=== PATIENT | male | born 1990 | race Caucasian/White ===

== ENCOUNTER 2020-08-02 17:44 | Emergency (ER) | payer BC, OTHER ==
--- NOTE | 2020-08-02 19:28 | ED ---
General Adult HPI - General Chief complaint: Eye Problems Stated complaint: Right vision issues Time Seen by Provider: 08/02/20 18:59 Source: patient Mode of arrival: ambulatory Limitations: no limitations - History of Present Illness Initial comments: 30-year-old male presents to emergency department this evening for evaluation of right eye vision changes. States he woke up from a nap at noon with loss of vision in the upper half of the visual field and blurriness in the lower half. States the vision loss resolved within an hour and the blurriness nearly resolved by 5:00pm. Does have a h/o migraine headaches with aura that occur rarely (approximately once a year), but states this vision loss is not accompanied by headache. Denies injury or trauma to the head, face, or eye. After researching his symptoms on the Internet, he does express concern about a possible stroke, despite not experiencing any ongoing focal neurological deficits. Patient denies any recent rash, fever, chills, cough, shortness of breath, chest pain, abdominal pain, nausea, vomiting, diarrhea, constipation, back pain, numbness, tingling, dizziness, weakness, hematuria, dysuria, urinary urgency, urinary frequency, or any other complaints. - Related Data Home Medications Medication Instructions Recorded Confirmed Cholecalciferol [Vitamin D3 (25 1,000 unit PO DAILY 08/02/20 08/02/20 Mcg = 1000 Iu)] Dextroamphetamine/Amphetamine 30 mg PO BID 08/02/20 08/02/20 [Adderall] Allergies Allergy/AdvReac Type Severity Reaction Status Date / Time Sulfa (Sulfonamide Allergy Unknown Verified 08/02/20 20:07 Antibiotics) Childhood Review of Systems ROS Statement: Those systems with pertinent positive or pertinent negative responses have been documented in the HPI. ROS Other: All systems not noted in ROS Statement are negative. Past Medical History Additional Past Medical History / Comment(s): migraines History of Any Multi-Drug Resistant Organisms: None Reported Past Surgical History: Ear Surgery Past Psychological History: ADD/ADHD Smoking Status: Current every day smoker Past Alcohol Use History: None Reported Past Drug Use History: Marijuana General Exam Limitations: no limitations (Well-developed, well-nourished male in no acute distress. Initial temperature 98.2, pulse 101, respirations 20, blood pressure 159/112, pulse ox 98% on room air.) General appearance: alert, in no apparent distress Eye exam: Present: normal appearance, PERRL, EOMI. Absent: scleral icterus, conjunctival injection, periorbital swelling Pupils: Present: normal accommodation Expanded Visual acuity (R) = 20/: 15 Visual acuity (L) = 20/: 15 With correction: No Respiratory exam: Present: normal lung sounds bilaterally. Absent: respiratory distress, wheezes, rales, rhonchi, stridor Cardiovascular Exam: Present: regular rate, normal rhythm, normal heart sounds. Absent: systolic murmur, diastolic murmur, rubs, gallop, clicks GI/Abdominal exam: Present: soft, normal bowel sounds. Absent: distended, tenderness, guarding, rebound, rigid Neurological exam: Present: alert, oriented X3, CN II-XII intact Psychiatric exam: Present: normal affect, normal mood Course Vital Signs 08/02/20 08/02/20 18:04 21:07 Temperature 98.2 F 98.9 F Pulse Rate 101 H 89 Respiratory 20 16 Rate Blood Pressure 159/112 138/98 O2 Sat by Pulse 98 98 Oximetry Medical Decision Making - Medical Decision Making 30-year-old male presents to the emergency department this evening with complaints of vision changes in his right eye. States he woke up from a nap at noon today with a complete loss of vision in the upper visual field of the right eye and blurriness in the lower half of the same eye. States vision loss resolved within an hour and blurriness resolved nearly completely within the next four hours. States he has some minor alteration in the peripheral vision of the right eye he can best describe as blurriness. Denies eye pain, head trauma, or headache. Physical exam reveals no abnormal findings. Visual acuity is 20/15 OD, OS, and OU. Brain CT is negative. Results discussed with patient. He is agreeable to discharge home and verbalizes understanding when instructed to follow up with ophthalmology first thing tomorrow morning. - Radiology Data Radiology results: report reviewed CT brain without contrast was obtained. There is no evidence of cerebral edema or intracranial hemorrhage. Impression per Dr. Esteban is negative unenhanced head CT Disposition Clinical Impression: Blurry vision, right eye, Transient vision disturbance of right eye Disposition: HOME SELF-CARE Condition: Good Instructions (If sedation given, give patient instructions): Blurred Vision (ED) Additional Instructions: Call forging press setter up first thing tomorrow morning for an appointment as soon as possible. Explain the loss of vision and blurry vision. Return to the emergency department with any new, worsening, or concerning symptoms. Is patient prescribed a controlled substance at d/c from ED?: No Referrals: Lei French MD [Primary Care Provider] - 1-2 days Alan Boyd MD [STAFF PHYSICIAN] - 1-2 days Time of Disposition: 20:26
--- NOTE | 2020-08-02 20:19 | CT ---
EXAMINATION TYPE: CT brain wo con DATE OF EXAM: 08/02/2020 COMPARISON: HISTORY: Pt states he lost vision in RT eye for a period of time today. CT DLP: 1173.4 mGycm Automated exposure control for dose reduction was used. Ventricles have normal size. There is no mass effect nor midline shift. There is no sign of intracran ial hemorrhage. The calvarium is intact. There is no evidence of cerebral edema. IMPRESSION: Negative unenhanced head CT scan.
[2020-08-02 21:10] VITALS: BP 138/98; PULSE 89; RESP 16; TEMP 98.9
== END 2020-08-02 21:05 | disposition home or self-care (01) ==
LOC: EC 17:44
DX: H53.8 Other visual disturbances (principal); F90.9 Attention-deficit hyperactivity disorder, unspecified type; F17.200 Nicotine dependence, unspecified, uncomplicated; Z79.899 Other long term (current) drug therapy; Z88.2 Allergy status to sulfonamides; Z86.69 Personal history of other diseases of the nervous system and sense organs
CPT/HCPCS: 70450; 99283

== ENCOUNTER 2021-07-25 09:14 | Emergency (ER) | payer OTHER ==
[2021-07-25 09:28] VITALS: RESP 18
[2021-07-25] MEDS ORDERED: KETOROLAC 15 MG/ML 1 ML VIAL IVP STA (10:13)
[2021-07-25] MEDS ORDERED: ONDANSETRON 4 MG/2 ML VIAL IVP STA (10:14)
[2021-07-25] MEDS ORDERED: HYDROmorphone 1 MG/ML 1 ML SYRINGE IVP STA ×2 (10:14→12:27)
[2021-07-25] MEDS ORDERED: ORPHENADRINE 30 MG/ML 2 ML VIAL IVP STA (10:15)
--- NOTE | 2021-07-25 10:19 | ED ---
General Adult HPI - General Chief complaint: Back Pain/Injury Stated complaint: Back pain Time Seen by Provider: 07/25/21 09:53 Source: patient, EMS, RN notes reviewed Mode of arrival: ambulatory - History of Present Illness Initial comments: -year-old male presents to the emergency department via EMS for evaluation of low back pain that radiates down the right leg, onset 3 weeks ago. Patient states initial injury occurred when he was lifting a laundry basket from the floor. States he had been taking Motrin and resting to treat the discomfort. Reports 3 days ago the pain became more severe and he was seen by his primary care provider who prescribed him oral steroids and a muscle relaxer which she has been taking. States he then went to see a chiropractor for an adjustment, but experienced increased discomfort afterward and reports decreased mobility. Patient states he was unable to get to a standing position from out of bed this morning and therefore EMS was called to transport him to the hospital. Patient denies numbness or tingling in the lower extremities, saddle anesthesia, loss of bowel or bladder control. If he has not achieved any relief of symptoms with medications that he is been taking at home. Denies fever, chills, headache, dizziness, chest pain, shortness of breath, abdominal pain, dysuria, or hematuria. - Related Data Home Medications Medication Instructions Recorded Confirmed Dextroamphetamine/Amphetamine 30 mg PO BID 08/02/20 07/25/21 [Adderall] methocarbamoL [Robaxin] 500 mg PO HS 07/25/21 07/25/21 predniSONE See Taper PO DIRECTED 07/25/21 07/25/21 Previous Rx's Medication Instructions Recorded Ketorolac [Toradol] 10 mg PO Q8HR #15 tab 07/25/21 Allergies Allergy/AdvReac Type Severity Reaction Status Date / Time Sulfa (Sulfonamide Allergy Unknown Verified 07/25/21 12:32 Antibiotics) Childhood Review of Systems ROS Statement: Those systems with pertinent positive or pertinent negative responses have been documented in the HPI. ROS Other: All systems not noted in ROS Statement are negative. Past Medical History Additional Past Medical History / Comment(s): migraines History of Any Multi-Drug Resistant Organisms: None Reported Past Surgical History: Ear Surgery Past Psychological History: ADD/ADHD Smoking Status: Current every day smoker Past Alcohol Use History: None Reported Past Drug Use History: Marijuana General Exam Limitations: no limitations (Well-developed, well-nourished male in no acute distress. Initial pulse 86, respirations 18, blood pressure 139/93, pulse ox 99% on room air.) General appearance: alert, in no apparent distress, other Head exam: Present: atraumatic, normocephalic, normal inspection Neck exam: Present: normal inspection, full ROM. Absent: tenderness, meningismus, lymphadenopathy Respiratory exam: Present: normal lung sounds bilaterally. Absent: respiratory distress, wheezes, rales, rhonchi, stridor Cardiovascular Exam: Present: regular rate, normal rhythm, normal heart sounds. Absent: systolic murmur, diastolic murmur, rubs, gallop, clicks GI/Abdominal exam: Present: soft, normal bowel sounds. Absent: distended, tenderness, guarding, rebound, rigid Left Neurovascular tendon exam: Present: no vascular compromise (+2 pedal and posttibial pulses). Absent: pulse deficit, abnormal cap refill, motor deficit, sensory deficit, foot drop Right Neurovascular tendon exam: Present: no vascular compromise (+2 pedal and posttibial pulses). Absent: pulse deficit, abnormal cap refill, motor deficit, sensory deficit, foot drop Expanded Back exam: Absent: saddle anesthesia Back exam: Positive Straight Leg Raise: Right (Straight leg test positive on the right reproducing radiating pain down the leg), Negative Straight Leg Raising: Left (Straight leg test negative on the left as it only causes low back discomfort) Neurological exam: Present: alert, oriented X3, CN II-XII intact Skin exam: Present: warm, dry, intact, normal color. Absent: rash Course Vital Signs 07/25/21 07/25/21 09:24 13:31 Temperature 97.6 F Pulse Rate 86 78 Respiratory 18 18 Rate Blood Pressure 139/93 128/80 O2 Sat by Pulse 99 99 Oximetry - Reevaluation(s) Reevaluation #1: 07/25/21 11:10 Patient requesting to have an MRI done. I explained that this is not an option in the emergency department. Explained that no imaging is typically needed for back pain in young people. Patient then asked about the option of CT and states he had an x-ray done yesterday prior to his adjustment. Patient would like to have CT as he is concerned that there was further damage done from having the chiropractic adjustment. 07/25/21 11:27 Patient able to sit up with assistance and expresses some relief after medications. Snacking and tolerating oral intake. Medical Decision Making - Medical Decision Making 31-year-old male is evaluated for complaints of low back pain 3 weeks, but was worsened yesterday after chiropractic adjustment. Upon physical exam, patient appears markedly uncomfortable with any movement. Reports low back pain and radiation of pain down the right leg with straight leg raise test. No loss of bowel or bladder control, saddle anesthesia, fever, or foot drop noted. Patient was given IV pain medication, anti-inflammatory, and muscle relaxer with improvement. CT of the lumbar spine was obtained at insistence of patient; findings include mild disc bulging at L4-5. Results were reviewed with patient. Plan of care was discussed including continuing home medication regimen as prescribed by his primary care provider which includes oral steroid and muscle relaxer. Patient was also prescribed oral Toradol and instruct did to avoid Motrin while taking this medication. Follow-up information for orthopedics with the local back specialist provided. This patient's care was discussed with my attending Dr. Sage. - Radiology Data Radiology results: report reviewed, image reviewed CT of the lumbar spine without contrast was obtained. Report was reviewed in its entirety. Impression per Dr. Benitez is mild disc bulging L4-5 with mild anterior thecal sac compression. Endplates spurring L4-5 and L5-S1. Disposition Clinical Impression: Lumbar back pain Disposition: HOME SELF-CARE Condition: Stable Instructions (If sedation given, give patient instructions): Acute Low Back Pain (ED), Lower Back Exercises (ED) Additional Instructions: Rest. Move 10 minutes of every hour while you're awake. Continue home medications as previously prescribed. If you take Toradol, do not take Motrin in addition. Follow-up as discussed. Return to the emergency department with any new, worsening, or concerning symptoms. Prescriptions: Ketorolac [Toradol] 10 mg PO Q8HR #15 tab Is patient prescribed a controlled substance at d/c from ED?: No Referrals: Lei French MD [Primary Care Provider] - 1-2 days Anam López DO [Doctor of Osteopathic Medicine] - 1-2 days Time of Disposition: 13:09
--- NOTE | 2021-07-25 12:31 | CT ---
EXAMINATION TYPE: CT lumbar spine wo con DATE OF EXAM: 07/25/2021 COMPARISON: None HISTORY: Low back pain x [address] DLP: 1189.4 mGycm CONTRAST: None TECHNIQUE: CT of the lumbar spine is performed on a spiral scan at 3 mm thick sections. Reconstructed images are performed in the coronal and sagittal planes. FINDINGS: T12-L1: No focal disc herniation or significant disc bulge is evident. No spinal canal stenosis or neural foraminal stenosis is present. L1-L2: No focal disc herniation or significant disc bulge is evident. No spinal canal stenosis or n eural foraminal stenosis is present L2-L3: No focal disc herniation or significant disc bulge is evident. No spinal canal stenosis or n eural foraminal stenosis is present L3-L4: No focal disc herniation or significant disc bulge is evident. No spinal canal stenosis or n eural foraminal stenosis is present L4-L5: Broad-based disc bulge is present with mild anterior thecal sac compression. No spinal canal s tenosis is present. Neural foramen are patent. Endplate spurring is present without stenosis. L5-S1: No focal disc herniation or significant disc bulge is evident. No spinal canal stenosis or n eural foraminal stenosis is present. Endplate spurring without spinal canal stenosis is present. Vertebral alignment appears normal. IMPRESSION: 1. Mild disc bulging L4-5 with mild anterior thecal sac compression. 2. Endplate spurring L4-5 and L5-S1
[2021-07-25] MEDS ORDERED: ACET/COD 300 MG/30 MG STARTER PACK 6 TAB BTL PO STA (13:09)
[2021-07-25 13:34] VITALS: BP 128/80; PULSE 78; TEMP 97.6
== END 2021-07-25 13:31 | disposition home or self-care (01) ==
LOC: EC 09:14
DX: M54.5 Low back pain (principal); F17.200 Nicotine dependence, unspecified, uncomplicated; Z88.2 Allergy status to sulfonamides; X50.0XXA Overexertion from strenuous movement or load, initial encounter; Y93.89 Activity, other specified; Y92.89 Other specified places as the place of occurrence of the external cause
CPT/HCPCS: 72131; 99283; 96374; 96375; 96376; J2360; J2405; J1170; J1885

== ENCOUNTER 2021-08-04 08:12 | Emergency (ER) | payer OTHER ==
[2021-08-04] MEDS ORDERED: DEXAMETHASONE SOD PHOSPHATE 10 MG/ML 1 ML VIAL IM STA (08:25)
[2021-08-04 08:27] VITALS: BP 140/81; PULSE 106; TEMP 97.5
--- NOTE | 2021-08-04 08:32 | ED ---
General Adult HPI - General Stated complaint: Swollen Uvula Time Seen by Provider: 08/04/21 08:12 Source: patient, RN notes reviewed, old records reviewed Mode of arrival: EMS - History of Present Illness Initial comments: 31-year-old male with foreign body sensation in his throat. Patient states it woke her evening and had eaten some crackers. He was doing fine at this time. He woke this morning and had the sensation of foreign body in his throat. Noted that his uvula was swollen. He called paramedics and was transported to the emergency department. He denies any fever. Denies preceding sore throat. Denies nasal congestion. He states he has some chronic pain issues but is otherwise healthy. No antihypertensive medication. - Related Data Home Medications Medication Instructions Recorded Confirmed Dextroamphetamine/Amphetamine 30 mg PO BID 08/02/20 08/04/21 [Adderall] Cyclobenzaprine [Flexeril] 5 mg PO HS 08/04/21 08/04/21 Previous Rx's Medication Instructions Recorded Ketorolac [Toradol] 10 mg PO Q8HR #15 tab 07/25/21 Amoxicillin 500 mg PO Q12HR 10 Days #20 cap 08/04/21 methylPREDNISolone Dose Pack 4 mg PO DIRECTED #21 packet 08/04/21 [Medrol Dose Pack] Allergies Allergy/AdvReac Type Severity Reaction Status Date / Time Sulfa (Sulfonamide Allergy Unknown Verified 08/04/21 09:28 Antibiotics) Childhood Review of Systems ROS Statement: Those systems with pertinent positive or pertinent negative responses have been documented in the HPI. ROS Other: All systems not noted in ROS Statement are negative. Past Medical History Additional Past Medical History / Comment(s): migraines History of Any Multi-Drug Resistant Organisms: None Reported Past Surgical History: Ear Surgery Past Psychological History: ADD/ADHD Smoking Status: Current every day smoker Past Alcohol Use History: None Reported Past Drug Use History: Marijuana General Exam General appearance: alert, in no apparent distress Head exam: Present: atraumatic, normocephalic Eye exam: Present: normal appearance, PERRL ENT exam: Present: other (Uvular edema, and small abrasion on the anterior surface this is mild in nature.) Respiratory exam: Present: normal lung sounds bilaterally. Absent: respiratory distress, wheezes, stridor Cardiovascular Exam: Present: regular rate, normal rhythm GI/Abdominal exam: Present: soft. Absent: distended, tenderness, guarding Extremities exam: Present: normal inspection, normal capillary refill. Absent: pedal edema, calf tenderness Back exam: Present: normal inspection Neurological exam: Present: alert, oriented X3, CN II-XII intact. Absent: motor sensory deficit Psychiatric exam: Present: normal affect, normal mood Skin exam: Present: warm, dry, intact. Absent: cyanosis, diaphoretic Course Vital Signs 08/04/21 08/04/21 08:20 10:28 Temperature 97.5 F L Pulse Rate 106 H Respiratory 16 17 Rate Blood Pressure 140/81 O2 Sat by Pulse 97 Oximetry Medical Decision Making - Medical Decision Making 31-year-old male with swollen uvula. This is minimally edematous with an abrasion on the anterior surface. Patient did admit to eating some popcorn in the middle the night. Likely traumatic in nature. He is given Decadron in ice water in the emergency department with improvement and swelling. He is observed for approximately 3 hours. Is not require any other intervention or treatment. He will be prescribed amoxicillin to cover the possibility of an infectious cause however I doubt this at this time. This is likely traumatic edema. Return parameters discussed. Disposition Clinical Impression: Uvulitis Disposition: HOME SELF-CARE Condition: Good Instructions (If sedation given, give patient instructions): Uvulitis (ED) Prescriptions: Amoxicillin 500 mg PO Q12HR 10 Days #20 cap methylPREDNISolone Dose Pack [Medrol Dose Pack] 4 mg PO DIRECTED #21 packet Is patient prescribed a controlled substance at d/c from ED?: No Referrals: Lei French MD [Primary Care Provider] - 1-2 days Time of Disposition: 10:49
[2021-08-04 10:29] VITALS: RESP 17
== END 2021-08-04 11:15 | disposition home or self-care (01) ==
LOC: EC 08:12
DX: K12.2 Cellulitis and abscess of mouth (principal); F17.200 Nicotine dependence, unspecified, uncomplicated; Z88.2 Allergy status to sulfonamides
CPT/HCPCS: 99283; 96372; J1100

== ENCOUNTER 2022-07-19 08:56 | Emergency (ER) | payer SELFPAY | END 2022-07-19 13:51 | disposition home or self-care (01) | LOC: EC 08:56 | DX: J06.9 Acute upper respiratory infection, unspecified (principal); J32.9 Chronic sinusitis, unspecified; J02.9 Acute pharyngitis, unspecified; Z20.822 Contact with and (suspected) exposure to COVID-19 | CPT/HCPCS: 87502; 87635; 99283 ==